=== PATIENT | female | born 1980 | race African-American/Black ===

== ENCOUNTER 2024-04-12 17:00 | Outpatient (RCR) | payer SELFPAY | END 2024-05-08 23:59 | LOC: NS 17:00 | DX: Z71.3 Dietary counseling and surveillance (principal) ==

== ENCOUNTER 2024-10-14 08:45 | Outpatient (RCR) | payer SELFPAY | END 2024-11-06 23:59 | LOC: NS 08:45 | DX: Z71.3 Dietary counseling and surveillance (principal) ==

== ENCOUNTER 2024-10-14 08:46 | Outpatient (RCR) | payer SELFPAY | END 2024-11-06 23:59 | LOC: NS 08:46 | DX: Z71.3 Dietary counseling and surveillance (principal) ==